=== PATIENT | female | born 1935 | race Caucasian/White ===

== ENCOUNTER 2017-08-29 17:15 | Inpatient (IN) | payer MEDICARE, OTHER ==
[~2017-08-29] VITALS: Ht 162.6 cm; Wt 59.0 kg
[2017-08-29 17:26] VITALS: BP 110/63
[2017-08-29] MEDS ORDERED: TRAZODONE HCL100 MG ORAL (17:58)
[2017-08-29] MEDS ORDERED: CYMBALTA60 MG ORAL (17:58)
[2017-08-29] MEDS ORDERED: GABAPENTIN400 MG ORAL (17:58)
[2017-08-29] MEDS ORDERED: DONEPEZIL HCL10 MG ORAL (17:58)
[2017-08-29] MEDS ORDERED: LOSARTAN POTASS50 MG ORAL (17:59)
[2017-08-29] MEDS ORDERED: QUETIAPINE FUMA25 MG ORAL (17:59)
[2017-08-29] MEDS ORDERED: METOPROLOL TART25 MG ORAL (18:05)
--- NOTE | 2017-08-29 18:18 | Emergency Room Report ---
History of Present Illness General Chief Complaint: Dyspnea/Respdistress Source: Patient, Medical Record, EMS Present Illness HPI [id number] Brought in for altered mental status by EMS. Patient not providing any history of present illness currently Info from SNF is limited No family members or friends bedside. Allergies: Coded Allergies: No Known Allergies (Unverified , 08/29/17) Patient History Past Medical History: unable to obtain Past Surgical History: unable to obtain Pertinent Family History: unable to obtain Social History: Denies: smoking, alcohol use, drug use Now: No Immunizations: UTD Reviewed Nursing Documentation: PMH: Agreed, PSxH: Agreed Nursing Documentation-PMH Past Medical History: No History, Except For Review of Systems All Other Systems: limited - AMS Physical Exam Vital Signs Date Time Temp Pulse Resp B/P (MAP) Pulse Ox O2 Delivery O2 Flow Rate FiO2 08/29/17 17:16 96.0 87 18 128/62 100 Non-Rebreather 15.0 96.1 Sp02 EP Interpretation: reviewed, normal General Appearance: normal inspection, well appearing, no apparent distress, alert, non-toxic, obese, Chronically Ill Head: normocephalic, atraumatic Eyes: bilateral eye PERRL, bilateral eye EOMI ENT: normal ENT inspection, normal pharynx, no angioedema, TMs + canals normal , uvula midline, moist mucus membranes Neck: normal inspection, full range of motion, supple, thyroid normal, no meningismus, no bony tend Respiratory: normal inspection, lungs clear, normal breath sounds, no rhonchi, no respiratory distress, no retraction, no accessory muscle use, no wheezing, speaking full sentences Cardiovascular #1: regular rate, rhythm, no edema, no JVD, normal capillary refill Gastrointestinal: normal inspection, normal bowel sounds, non tender, soft, no mass, no peritonitis, non-distended, no guarding, no hernia, no pulsatile mass Genitourinary: no CVA tenderness Musculoskeletal: normal inspection, back normal, normal range of motion, no calf tenderness, pelvis stable, Zechariah's Sign negative Neurologic: normal inspection, alert, responsive, field artillery targeting technician III-XII nml as tested, motor strength/tone normal, cerebellar normal, normal gait, speech normal Psychiatric: normal inspection, judgement/insight normal, mood/affect normal, no suicidal/homicidal ideation, no delusions Skin: normal inspection, normal color, no rash Lymphatic: normal inspection, no adenopathy Medical Decision Making Diagnostic Impression: Primary Impression: Altered mental status Qualified Codes: R41.82 - Altered mental status, unspecified Additional Impressions: UCHE (acute kidney injury) UTI (urinary tract infection) Qualified Codes: N30.01 - Acute cystitis with hematuria ER Course Vital signs stable, afebrile altered mental status source likely UTI Pharmacy told me they did not have Levaquin 750 mg and to order something different. I ordered Rocephin instead however pharmacy also still gave the Levaquin in a 250 mg and 500 mg dose Labs significant for mild leukocytosis, elevated serum creatinine unknown baseline serum creatinine. She remained stable in ER Endorsed to Dr. Molina for panel admission to telemetry bed at 7:44 PM EKG Diagnostic Results Rate: normal Rhythm: NSR ST Segments: no acute changes ASA given to the pt in ED: No Rhythm Strip Diag. Results EP Interpretation: yes Rate: 92 Rhythm: NSR, no PVC's, no ectopy Chest X-Ray Diagnostic Results Chest X-Ray Diagnostic Results : Chest X-Ray Ordered: Yes # of Views/Limited/Complete: 1 View Indication: Other - Sepsis EP Interpretation: Yes Interpretation: no consolidation, no effusion, no pneumothorax, no acute cardiopulmonary disease Impression: No acute disease Electronically Signed by: Dr Kathy Jones MD Last Vital Signs Date Time Temp Pulse Resp B/P (MAP) Pulse Ox O2 Delivery O2 Flow Rate FiO2 08/29/17 17:16 96.0 87 18 128/62 100 Non-Rebreather 15.0 96.1 Status: improved Disposition: ADMITTED INPATIENT Condition: Serious KATHY JONES M.D. Aug 29, 2017 18:18
[2017-08-29 18:37] LABS: BASOPHILS % (AUTO) 0.6 % (0.0-2.0); EOSINOPHILS % (AUTO) 0.3 % (0.0-3.0); HEMATOCRIT 41.1 % (37.0-47.0); HEMOGLOBIN 13.9 G/DL (12.0-16.0); LYMPHOCYTES % (AUTO) 11.5 % (20.0-45.0); MEAN CORPUSCULAR VOLUME 93 FL (80-99); MONOCYTES % (AUTO) 7.1 % (1.0-10.0); NEUTROPHILS % (AUTO) 80.4 % (45.0-75.0); PLATELET COUNT 256 K/UL (150-450); RED BLOOD COUNT 4.41 M/UL (4.20-5.40); RED CELL DISTRIBUTION WIDTH 13.5 % (11.6-14.8); WHITE BLOOD COUNT 11.2 K/UL (4.8-10.8)
[2017-08-29 18:45] VITALS: BP 111/72
[2017-08-29 18:45] LABS: APPEARANCE,URINE SLIGHTLY CLOUDY; BILIRUBIN, URINE NEGATIVE (NEGATIVE); GLUCOSE, URINE (UA) NEGATIVE (NEGATIVE); KETONES,URINE 1+ (NEGATIVE); LEUKOCYTE ESTERASE ,URINE 1+ (NEGATIVE); NITRITE,URINE NEGATIVE (NEGATIVE); PH,URINE 5 (4.5-8.0); PROTEIN,URINE 2+ (NEGATIVE); UROBILINOGEN,URINE 1 MG/DL (0.0-1.0)
[2017-08-29] MEDS ORDERED: cefTRIAXone 2 GM in NS 55 ML IVPB ONE (18:45)
[2017-08-29 18:47] LABS: COLOR,URINE YELLOW
[2017-08-29] MEDS: Levofloxacin 250mg/D5W 50ml IVPB ONE ×2 (19:02→19:42)
[2017-08-29 19:03] LABS: ANION GAP 7 mmol/L (5-15); BLOOD UREA NITROGEN 27 mg/dL (7-18); CALCIUM 9.4 MG/DL (8.5-10.1); CARBON DIOXIDE 27 MMOL/L (21-32); CHLORIDE 106 MMOL/L (98-107); CREATININE 1.4 MG/DL (0.55-1.30); POTASSIUM 4.2 MMOL/L (3.5-5.1); SODIUM 140 MMOL/L (136-145)
[2017-08-29 19:18] LABS: ALANINE AMINOTRANSFERASE 35 U/L (12-78); ALBUMIN 3.6 G/DL (3.4-5.0); ALKALINE PHOSPHATASE 68 U/L (46-116); ASPARTATE AMINO TRANSFERASE 29 U/L (15-37); BILIRUBIN,TOTAL 0.4 MG/DL (0.2-1.0); CKMB 1.2 NG/ML (0.0-3.6); CREATINE KINASE 110 U/L (26-308)
[2017-08-29 19:40] VITALS: BP 112/74
[2017-08-29] MEDS ORDERED: Morphine Sulfate 2mg/ml Inj IVP PRN (21:30)
[2017-08-29] MEDS ORDERED: Albuterol/Ipratropium 3ml neb HHN PRN (21:30)
[2017-08-29] MEDS ORDERED: Miralax 17gm pkt ORAL PRN (21:30)
[2017-08-29 21:50] VITALS: BP 124/72
[2017-08-30] VITALS (7 sets, daily range): BP systolic 105–155; BP diastolic 65–89
[2017-08-30] MEDS ORDERED: Vancomycin 1 GM in D5W 275 ML IVPB SCH (00:30)
[2017-08-30] MEDS ORDERED: Vancomycin 1gm inj IVPB ONE (00:32)
--- NOTE | 2017-08-30 08:51 | Diagnostic Imaging Report ---
Indication: Shortness of breath Technique: One view of the chest Comparison: none Findings: Patient is status post multiple vertebral augmentation procedures. There is slight blunting of both costophrenic sulci, small effusions are not excluded. The lungs are clear. 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 Impression: Equivocal small bilateral pleural effusions. No acute process otherwise
[2017-08-30] MEDS ORDERED: DULoxetine 30mg cap ORAL SCH (09:00)
[2017-08-30] MEDS ORDERED: Heparin 5000 units/ml inj SUBQ SCH (09:00)
[2017-08-30] MEDS ORDERED: TraZODone 100mg tab ORAL SCH (09:00)
[2017-08-30] MEDS ORDERED: Metoprolol 25mg tab ORAL SCH (09:00)
[2017-08-30] MEDS ORDERED: Cefepime HCl 2 GM in D5W 110 ML IV SCH (09:00)
[2017-08-30] MEDS ORDERED: Donepezil 10mg tab ORAL SCH (09:00)
--- NOTE | 2017-08-30 12:25 | Consultation ---
History of Present Illness General Date patient seen: Aug 30, 2017 Chief Complaint: Dyspnea/Respdistress Present Illness HPI 81 year old female from a [facility] facility with psychiatric disorder was brought in by paramedics with CC of ALOC. Pt couldn't provide any history. She was thought to have UTI causing sepsis and ALOC and admitted for further management. Only information available from the [facility], is her medication list, filled with psychiatric meds. Allergies: Coded Allergies: No Known Allergies (Unverified , 08/29/17) Medication History Scheduled Donepezil Hcl* (Donepezil Hcl*), 10 MG ORAL DAILY, (Reported) Duloxetine Hcl* (Cymbalta*), 60 MG ORAL DAILY, (Reported) Gabapentin* (Gabapentin*), 400 MG ORAL TWICE A DAY, (Reported) Losartan Potassium* (Losartan Potassium*), 50 MG ORAL DAILY, (Reported) Metoprolol Tartrate* (Metoprolol Tartrate*), 25 MG ORAL DAILY, (Reported) Quetiapine Fumarate* (Seroquel*), 50 MG ORAL DAILY, (Reported) Trazodone Hcl* (Desyrel*), 100 MG ORAL DAILY, (Reported) Patient History Healthcare decision maker Resuscitation status Full Code Advanced Directive on File Past Medical/Surgical History Past Medical/Surgical History: (1) Psychiatric diagnosis Review of Systems All Other Systems: negative except mentioned in HPI Physical Exam General Appearance: cachetic Lines, tubes and drains: peripheral HEENT: normocephalic, atraumatic Neck: non-tender, normal alignment Respiratory/Chest: chest wall non-tender, lungs clear, no respiratory distress Breasts: no masses Cardiovascular/Chest: normal peripheral pulses Abdomen: normal bowel sounds, non tender Last 24 Hour Vital Signs Date Time Temp Pulse Resp B/P (MAP) Pulse Ox O2 Delivery O2 Flow Rate FiO2 08/30/17 09:58 102 149/72 08/30/17 08:00 98.2 102 18 149/72 98 Non-Rebreather 15.0 98.2 08/30/17 06:42 75 20 Non-Rebreather 100 08/30/17 04:00 97.7 97 20 137/84 97 Non-Rebreather 15.0 97.7 08/30/17 03:49 107 08/30/17 00:00 97.7 99 20 150/77 97 Non-Rebreather 15.0 97.7 08/29/17 23:51 100 08/29/17 22:10 98.6 97 15 124/72 100 Non-Rebreather 15.0 98.6 08/29/17 21:50 98.6 97 15 124/72 100 Non-Rebreather 15.0 98.6 08/29/17 19:40 98.2 97 16 112/74 100 Non-Rebreather 15.0 98.2 08/29/17 18:45 98.4 100 14 111/72 100 Non-Rebreather 15.0 98.4 08/29/17 17:26 87 18 Non-Rebreather 15.0 08/29/17 17:26 98.4 95 15 110/63 100 Non-Rebreather 15.0 98.4 08/29/17 17:16 96.0 87 18 128/62 100 Non-Rebreather 15.0 96.1 Intake and Output 08/29/17 08/30/17 19:00 07:00 Intake Total 0 ml 366.6 ml Balance 0 ml 366.6 ml Intake Oral 0 ml IV Total 366.6 ml # Voids 2 Laboratory Tests Test 08/29/17 17:35 08/29/17 18:30 White Blood Count 11.2 K/UL (4.8-10.8) H Red Blood Count 4.41 M/UL (4.20-5.40) Hemoglobin 13.9 G/DL (12.0-16.0) Hematocrit 41.1 % (37.0-47.0) Mean Corpuscular Volume 93 FL (80-99) Mean Corpuscular Hemoglobin 31.5 PG (27.0-31.0) H Mean Corpuscular Hemoglobin Concent 33.8 G/DL (32.0-36.0) Red Cell Distribution Width 13.5 % (11.6-14.8) Platelet Count 256 K/UL (150-450) Mean Platelet Volume 6.2 FL (6.5-10.1) L Neutrophils (%) (Auto) 80.4 % (45.0-75.0) H Lymphocytes (%) (Auto) 11.5 % (20.0-45.0) L Monocytes (%) (Auto) 7.1 % (1.0-10.0) Eosinophils (%) (Auto) 0.3 % (0.0-3.0) Basophils (%) (Auto) 0.6 % (0.0-2.0) Sodium Level 140 MMOL/L (136-145) Potassium Level 4.2 MMOL/L (3.5-5.1) Chloride Level 106 MMOL/L (98-107) Carbon Dioxide Level 27 MMOL/L (21-32) Anion Gap 7 mmol/L (5-15) Blood Urea Nitrogen 27 mg/dL (7-18) H Creatinine 1.4 MG/DL (0.55-1.30) H Estimat Glomerular Filtration Rate mL/min (>60) Glucose Level 184 MG/DL (74-106) H Lactic Acid Level 1.10 mmol/L (0.66-2.22) Calcium Level 9.4 MG/DL (8.5-10.1) Total Bilirubin 0.4 MG/DL (0.2-1.0) Aspartate Amino Transf (AST/SGOT) 29 U/L (15-37) Alanine Aminotransferase (ALT/SGPT) 35 U/L (12-78) Alkaline Phosphatase 68 U/L (46-116) Total Creatine Kinase 110 U/L (26-308) Creatine Kinase MB 1.2 NG/ML (0.0-3.6) Creatine Kinase MB Relative Index 1.0 Troponin I 0.007 ng/mL (0.000-0.056) Total Protein 7.2 G/DL (6.4-8.2) Albumin 3.6 G/DL (3.4-5.0) Globulin 3.6 g/dL Albumin/Globulin Ratio 1.0 (1.0-2.7) Urine Color Yellow Urine Appearance Slightly cloudy Urine pH 5 (4.5-8.0) Urine Specific [place] 1.020 (1.005-1.035) Urine Protein 2+ (NEGATIVE) H Urine Glucose (UA) Negative (NEGATIVE) Urine Ketones 1+ (NEGATIVE) H Urine Occult Blood 1+ (NEGATIVE) H Urine Nitrite Negative (NEGATIVE) Urine Bilirubin Negative (NEGATIVE) Urine Urobilinogen 1 MG/DL (0.0-1.0) H Urine Leukocyte Esterase 1+ (NEGATIVE) H Urine RBC 0-2 /HPF (0 - 2) Urine WBC 5-10 /HPF (0 - 2) H Urine Squamous Epithelial Cells Few /LPF (NONE/OCC) Urine Amorphous Sediment Moderate /LPF (NONE) H Urine Bacteria Few /HPF (NONE) Urine Mucus Few /LPF (NONE/OCC) H Height (Feet): 5 Height (Inches): 4.00 Weight (Pounds): 130 Medications Current Medications Medications (Trade) Dose Ordered Sig/Nimesh Route PRN Reason Start Time Stop Time Status Last Admin Dose Admin Acetaminophen (Tylenol) 650 mg Q4H PRN ORAL fever 08/29/17 21:30 09/28/17 21:29 Albuterol/ Ipratropium (Albuterol/ Ipratropium) 3 ml EVERY 4 HOURS PRN HHN Shortness of Breath 08/29/17 21:30 09/03/17 21:29 Cefepime HCl 2 gm/ Dextrose 110 ml @ 220 mls/hr Q24H IV 08/30/17 09:00 09/06/17 08:59 08/30/17 10:59 Donepezil HCl (Aricept) 10 mg DAILY ORAL 08/30/17 09:00 09/29/17 08:59 08/30/17 09:59 Duloxetine HCl (Cymbalta) 60 mg DAILY ORAL 08/30/17 09:00 09/29/17 08:59 08/30/17 09:59 Gabapentin (Neurontin) 400 mg TWICE A DAY ORAL 08/30/17 09:00 09/29/17 08:59 08/30/17 09:59 Heparin Sodium (Porcine) (Heparin 5000 units/ml) 5,000 units EVERY 12 HOURS SUBQ 08/30/17 09:00 09/29/17 08:59 08/30/17 10:07 Metoprolol Tartrate (Lopressor) 25 mg DAILY ORAL 08/30/17 09:00 09/29/17 08:59 08/30/17 09:58 Morphine Sulfate (Morphine Sulfate) 2 mg EVERY 4 HOURS PRN IVP Moderate Pain (Pain Scale 4-6) 08/29/17 21:30 09/05/17 21:29 08/30/17 01:14 Ondansetron HCl (Zofran) 4 mg Q6H PRN IVP Nausea & Vomiting 08/29/17 21:30 09/28/17 21:29 Phenazopyridine HCl (Pyridium) 100 mg DAILY PRN ORAL dysuria 08/29/17 21:30 09/28/17 21:29 Polyethylene Glycol (Miralax) 17 gm DAILYPRN PRN ORAL Constipation 08/29/17 21:30 09/28/17 21:29 Quetiapine Fumarate (SEROquel) 50 mg DAILY ORAL 08/30/17 09:00 09/29/17 08:59 08/30/17 09:59 Temazepam (Restoril) 15 mg HSPRN PRN ORAL Insomnia 08/29/17 21:30 09/05/17 21:29 Trazodone HCl (Desyrel) 100 mg DAILY ORAL 08/30/17 09:00 09/29/17 08:59 08/30/17 10:05 Vancomycin HCl 1 gm/Dextrose 275 ml @ 183.3 mls/ hr Q24H IVPB 08/30/17 00:30 09/04/17 00:29 08/30/17 00:50 Assessment/Plan Problem List: (1) Altered mental status ICD Codes: R41.82 - Altered mental status, unspecified SNOMED: 293911645 Qualifiers: Qualified Codes: R41.82 - Altered mental status, unspecified (2) UTI (urinary tract infection) ICD Codes: N39.0 - Urinary tract infection, site not specified SNOMED: 98159497 Qualifiers: Qualified Codes: N30.01 - Acute cystitis with hematuria (3) UCHE (acute kidney injury) ICD Codes: N17.9 - Acute kidney failure, unspecified SNOMED: 99604059 (4) Psychiatric diagnosis ICD Codes: F99 - Mental disorder, not otherwise specified SNOMED: 26275652, 336050637 Assessment/Plan iv fluids check cultures check urine cxr was negative psychiatry to see renal w/u check electrolytes. CHRISTINE PANG Aug 30, 2017 12:25
[2017-08-30] MEDS ORDERED: Albuterol/Ipratropium 3ml neb HHN PRN (17:00)
--- NOTE | 2017-08-30 20:13 | Consultation ---
History of Present Illness General Date patient seen: Aug 30, 2017 Chief Complaint: Dyspnea/Respdistress Present Illness HPI the pt with hx of depression and dementia who pw ams, the pt was confused and pw waxing and waning of consciousness. the pt has memory impairment and not able to be engaged. the pt has been more confused and agitated at her living facility. Allergies: Coded Allergies: No Known Allergies (Unverified , 08/29/17) Medication History Scheduled Donepezil Hcl* (Donepezil Hcl*), 10 MG ORAL DAILY, (Reported) Duloxetine Hcl* (Cymbalta*), 60 MG ORAL DAILY, (Reported) Gabapentin* (Gabapentin*), 400 MG ORAL TWICE A DAY, (Reported) Losartan Potassium* (Losartan Potassium*), 50 MG ORAL DAILY, (Reported) Metoprolol Tartrate* (Metoprolol Tartrate*), 25 MG ORAL DAILY, (Reported) Quetiapine Fumarate* (Seroquel*), 50 MG ORAL DAILY, (Reported) Trazodone Hcl* (Desyrel*), 100 MG ORAL DAILY, (Reported) Patient History Limited by: medical condition History Provided By: Patient, Medical Record, PMD Healthcare decision maker Resuscitation status Full Code Advanced Directive on File Past Medical/Surgical History Past Medical/Surgical History: (1) Altered mental status (2) UCHE (acute kidney injury) (3) Psychiatric diagnosis (4) UTI (urinary tract infection) Review of Systems Psychiatric: Reports: prior hx, anxiety, depressed feelings, emotional problems Physical Exam General Appearance: no apparent distress, alert, confused Last 24 Hour Vital Signs Date Time Temp Pulse Resp B/P (MAP) Pulse Ox O2 Delivery O2 Flow Rate FiO2 08/30/17 15:57 98.4 82 18 114/72 96 Room Air 98.4 08/30/17 15:00 97.9 76 19 105/65 98 97.9 08/30/17 12:00 97.7 90 18 132/89 98 Non-Rebreather 15.0 97.7 08/30/17 12:00 90 08/30/17 09:58 102 149/72 08/30/17 08:00 102 08/30/17 08:00 98.2 102 18 149/72 98 Non-Rebreather 15.0 98.2 08/30/17 06:42 75 20 Non-Rebreather 100 3/9/18 04:00 97.7 97 20 137/84 97 Non-Rebreather 15.0 97.7 08/30/17 03:49 107 08/30/17 00:00 97.7 99 20 150/77 97 Non-Rebreather 15.0 97.7 08/29/17 23:51 100 08/29/17 22:10 98.6 97 15 124/72 100 Non-Rebreather 15.0 98.6 08/29/17 21:50 98.6 97 15 124/72 100 Non-Rebreather 15.0 98.6 Intake and Output 08/29/17 08/30/17 19:00 07:00 Intake Total 0 ml 366.6 ml Balance 0 ml 366.6 ml Intake Oral 0 ml IV Total 366.6 ml # Voids 2 Height (Feet): 5 Height (Inches): 4.00 Weight (Pounds): 130 Medications Current Medications Medications (Trade) Dose Ordered Sig/Nimesh Route PRN Reason Start Time Stop Time Status Last Admin Dose Admin Acetaminophen (Tylenol) 650 mg Q4H PRN ORAL fever 08/30/17 17:30 09/28/17 21:29 Albuterol/ Ipratropium (Albuterol/ Ipratropium) 3 ml EVERY 4 HOURS PRN HHN Shortness of Breath 08/30/17 17:00 09/03/17 21:29 Cefepime HCl 2 gm/ Dextrose 110 ml @ 220 mls/hr Q24H IV 08/31/17 09:00 09/06/17 08:59 Donepezil HCl (Aricept) 10 mg DAILY ORAL 08/31/17 09:00 09/29/17 08:59 Duloxetine HCl (Cymbalta) 60 mg DAILY ORAL 08/31/17 09:00 09/29/17 08:59 Gabapentin (Neurontin) 400 mg TWICE A DAY ORAL 08/30/17 18:00 09/29/17 08:59 08/30/17 18:17 Heparin Sodium (Porcine) (Heparin 5000 units/ml) 5,000 units EVERY 12 HOURS SUBQ 08/30/17 21:00 09/29/17 08:59 Metoprolol Tartrate (Lopressor) 25 mg DAILY ORAL 08/31/17 09:00 09/29/17 08:59 Morphine Sulfate (Morphine Sulfate) 2 mg EVERY 4 HOURS PRN IVP Moderate Pain (Pain Scale 4-6) 08/30/17 17:00 09/05/17 21:29 Ondansetron HCl (Zofran) 4 mg Q6H PRN IVP Nausea & Vomiting 08/30/17 15:30 09/28/17 21:29 Phenazopyridine HCl (Pyridium) 100 mg DAILY PRN ORAL dysuria 08/31/17 09:00 09/28/17 21:29 Polyethylene Glycol (Miralax) 17 gm DAILYPRN PRN ORAL Constipation 08/30/17 21:30 09/28/17 21:29 Quetiapine Fumarate (SEROquel) 50 mg DAILY ORAL 08/31/17 09:00 09/29/17 08:59 Temazepam (Restoril) 15 mg HSPRN PRN ORAL Insomnia 08/30/17 21:30 09/05/17 21:29 Trazodone HCl (Desyrel) 100 mg DAILY ORAL 08/31/17 09:00 09/29/17 08:59 Vancomycin HCl (Vanco rx to dose) 1 ea DAILYPRN PRN MISC RX TO DOSE PROTOCOL 08/31/17 14:45 09/29/17 14:44 Vancomycin HCl 1 gm/Dextrose 275 ml @ 183.3 mls/ hr Q24H IVPB 08/31/17 00:30 09/04/17 00:29 Assessment/Plan Status: unchanged Assessment/Plan encephalopathy dementia with behavioral disturbance cont Silveriombalta abdulaziz donazapil stop trazadone change seroquel to night Liat Dan M.D. Aug 30, 2017 20:13
--- NOTE | 2017-08-30 20:16 | History & Physical ---
History and Physical History & Physicial Dictated for Int Med-Dr Molina no. [id number]. DAMARIS REINA Aug 30, 2017 20:16
[2017-08-30] MEDS: Heparin 5000 units/ml inj SUBQ SCH (20:27)
[2017-08-30] MEDS ORDERED: Miralax 17gm pkt ORAL PRN (21:30)
--- NOTE | 2017-08-30 21:53 | Consultation ---
Consult Note Consult Note [id number] DILAN FOURNIER M.D. Aug 30, 2017 21:53
[2017-08-30] MEDS: Morphine Sulfate 2mg/ml Inj IVP PRN (22:18)
[2017-08-31] VITALS: BP 118/63
[2017-08-31] MEDS ORDERED: Vancomycin 1 GM in D5W 275 ML IVPB SCH (00:30)
[2017-08-31 04:00] VITALS: BP 118/65
--- NOTE | 2017-08-31 04:00 | History and Physical Report ---
DATE OF ADMISSION: 08/29/2017 CHIEF COMPLAINT: The patient is a 81-year-old female, who presents with a chief complaint of altered mental status. HISTORY OF PRESENT ILLNESS: The patient is a resident of [facility]. The patient herself is unable to contribute much to the history and physical. Much of the history and physical is obtained from the patient's chart. According to the staff at [facility], the patient had altered mental status yesterday, 08/29/2017. The patient was transported to [place] emergency room. The patient is admitted for altered mental status to rule out acute cerebrovascular accident. PAST MEDICAL HISTORY: Significant for, 1. Hypertension. 2. Alzheimer's dementia. 3. Depression. PAST SURGICAL HISTORY: Unknown. CURRENT MEDICATIONS: 1. Trazodone 100 mg one tablet p.o. daily. 2. Lorazepam 0.5 mg p.o. q.6 hours anxiety. 3. Fluoxetine 60 mg p.o. daily. 4. Metoprolol 25 mg p.o. daily. 5. Gabapentin 400 mg p.o. twice daily. 6. Hydrochlorothiazide and benazepril 10 mg p.o. daily. 7. Losartan 50 mg p.o. daily. 8. Trazodone 100 mg p.o. daily. 9. Seroquel 30 mg p.o. twice daily. 10. Metoprolol 25 mg p.o. daily. 11. Gabapentin 400 mg p.o. twice daily. 12. Losartan 50 mg p.o. daily. ALLERGIES: No known drug allergies. SOCIAL HISTORY: The patient denies tobacco or alcohol use. The patient lives at [facility]. REVIEW OF SYSTEMS: Unable to assess secondary to the patient's mental status. PHYSICAL EXAMINATION: VITAL SIGNS: Temperature 98.2, respirations 18, pulse elevated at 102, and blood pressure 149/72. GENERAL: The patient is a well-developed and well-nourished thin-appearing female, in no apparent distress. HEENT: Eyes, pupils equal responsive to light and accommodation. Extraocular movements intact. NECK: Supple. No lymphadenopathy. CHEST: Lungs are clear to auscultation bilaterally without wheezes or rales. CARDIOVASCULAR: Regular rhythm and rate. S1 and S2 are normal without murmurs, rubs, or gallops. ABDOMEN: Soft, nontender, and nondistended. Positive bowel sounds. No evidence of hepatosplenomegaly. Currently, no rebound or guarding noted. EXTREMITIES: Negative for clubbing, cyanosis, edema. RECTAL/GENITAL: Refused. NEUROLOGIC: Cranial nerves II through XII are grossly intact without focal deficits. Motor strength is 5/5 bilaterally. Deep tendon reflexes are 2+ plantar. LABORATORY STUDIES: WBC 11.3, hemoglobin 13.9, hematocrit 41.1, and platelets 356,000. Sodium 140, potassium 4.2, chloride 106, CO2 27, BUN 1.4, and glucose 184. Chest x-ray was reported as no acute disease. Urinalysis showed 1+ ketones, 1+ occult blood, 1+ leukocyte esterase, and 5 to 10 wbc's. ASSESSMENT: This is a 81-year-old white female. 1. Altered mental status. 2. Hypertension. 3. Alzheimer's dementia. 4. Depression. TREATMENT: 1. Altered mental status. This may be secondary to urinary tract infection. The patient has been started empirically on vancomycin. Infectious disease consultation has been obtained with Dr. Linda. Cefepime has been added for protection. Broader spectrum. 2. Hypertension. 3. Urinary tract infection. A urine culture is pending. As above, the patient has been started on vancomycin and cefepime by infectious disease. 4. Hypertension. Continue metoprolol as above. 5. Alzheimer's dementia. Continue Aricept and Namenda as above. 6. Depression. Continue Cymbalta and trazodone as above. Dax Chacon M.D. DR: ADELITA JOB#: [id number] CC:
--- NOTE | 2017-08-31 07:45 | Consultation ---
DATE OF CONSULTATION: 08/30/2017 INFECTIOUS DISEASE CONSULTATION CONSULTING PHYSICIAN: Dorian Linda M.D. REFERRING PHYSICIANS: 1. Pratik Barkley M.D. 2. Sabas Molina M.D. REASON FOR CONSULTATION: Evaluation of the patient for sepsis and antibiotic management. HISTORY OF PRESENT ILLNESS: The patient is a 81-year-old female who was brought to this medical center due to altered level of consciousness. The patient is not able to provide information. The patient was admitted with the impression of probable UTI and sepsis. An Infectious Disease consultation has been requested for further evaluation of the patient and antibiotic management. PAST MEDICAL HISTORY: Osteoporosis, hypertension, and psychiatric disorder. MEDICATIONS: Vancomycin and cefepime. ALLERGIES: No known drug allergies. SOCIAL HISTORY: Unknown. FAMILY HISTORY: Unavailable. REVIEW OF SYSTEMS: Unobtainable. The patient is not cooperative. PHYSICAL EXAMINATION: VITAL SIGNS: Temperature 98.7, pulse 80, respiratory rate 18, and blood pressure 120/65. HEENT: No pale conjunctivae. No icterus. NECK: No lymphadenopathy. CHEST: Clear. HEART: S1 and S2. ABDOMEN: Soft. EXTREMITIES: No cyanosis at this time. NEUROLOGIC: Awake, agitated. SKIN: No rash. LABORATORY AND DIAGNOSTIC DATA: White blood cells 11.2, hemoglobin 13, and platelets 256,000. UA, 5 to 10 white blood cells. BUN 20 and creatinine 1.4. ALT, AST, and alkaline phosphatase are unremarkable. Chest x-ray, small pleural effusion. NAPD. ASSESSMENT: The patient is a 81-year-old female with 1. Altered level of consciousness and agitation. This could be due to sepsis versus possible exacerbation of the patient's psychiatric issues. 2. ____. 3. white blood cells. 4. Mild pyuria, rule out urinary tract infection. PLAN: 1. We will continue the patient on IV cefepime. 2. Hold IV vancomycin. 3. Monitor CBC. 4. Monitor BMP. 5. Monitor cultures (blood and urine). 6. Monitor chest x-ray. 7. Based on the patient's clinical course and labs, we will do further recommendations. Thank you, Dr. Barkley, for allowing me to participate in the care of this patient. I will follow the patient with you during this hospitalization. Dorian Linda M.D. DR: EMORY JOB#: [id number] CC:
[2017-08-31 08:10] VITALS: BP 134/78
[2017-08-31] MEDS ORDERED: Donepezil 10mg tab ORAL SCH (09:00)
[2017-08-31] MEDS ORDERED: TraZODone 100mg tab ORAL SCH (09:00)
[2017-08-31] MEDS: DULoxetine 30mg cap ORAL SCH (10:57)
[2017-08-31] MEDS: Metoprolol 25mg tab ORAL SCH (10:57)
[2017-08-31] MEDS: Heparin 5000 units/ml inj SUBQ SCH ×2 (10:59→20:58)
[2017-08-31] MEDS: Cefepime HCl 2 GM in D5W 110 ML IV SCH (11:09)
[2017-08-31 12:05] VITALS: BP 135/90
[2017-08-31 16:00] VITALS: BP 128/86
--- NOTE | 2017-08-31 17:14 | Internal Med Progress Note ---
Subjective Date of Service: Aug 31, 2017 Physician Name Reina,Damaris Attending Physician Sabas Molina MD Current Medications Medications (Trade) Dose Ordered Sig/Nimesh Route PRN Reason Start Time Stop Time Status Last Admin Dose Admin Acetaminophen (Tylenol) 650 mg Q4H PRN ORAL fever 08/30/17 17:30 09/28/17 21:29 Albuterol/ Ipratropium (Albuterol/ Ipratropium) 3 ml EVERY 4 HOURS PRN HHN Shortness of Breath 08/30/17 17:00 09/03/17 21:29 Cefepime HCl 2 gm/ Dextrose 110 ml @ 220 mls/hr Q24H IV 08/31/17 09:00 09/06/17 08:59 08/31/17 11:09 Duloxetine HCl (Cymbalta) 60 mg DAILY ORAL 08/31/17 09:00 09/29/17 08:59 08/31/17 10:57 Gabapentin (Neurontin) 300 mg TWICE A DAY ORAL 08/31/17 11:15 09/30/17 11:14 08/31/17 11:09 Heparin Sodium (Porcine) (Heparin 5000 units/ml) 5,000 units EVERY 12 HOURS SUBQ 08/30/17 21:00 09/29/17 08:59 08/31/17 10:59 Metoprolol Tartrate (Lopressor) 25 mg DAILY ORAL 08/31/17 09:00 09/29/17 08:59 08/31/17 10:57 Morphine Sulfate (Morphine Sulfate) 2 mg EVERY 4 HOURS PRN IVP Moderate Pain (Pain Scale 4-6) 08/30/17 17:00 09/05/17 21:29 08/30/17 22:18 Ondansetron HCl (Zofran) 4 mg Q6H PRN IVP Nausea & Vomiting 08/30/17 15:30 09/28/17 21:29 Phenazopyridine HCl (Pyridium) 100 mg DAILY PRN ORAL dysuria 08/31/17 09:00 09/28/17 21:29 Polyethylene Glycol (Miralax) 17 gm DAILYPRN PRN ORAL Constipation 08/30/17 21:30 09/28/17 21:29 Quetiapine Fumarate (SEROquel) 50 mg BEDTIME ORAL 08/31/17 21:00 09/29/17 08:59 Temazepam (Restoril) 15 mg HSPRN PRN ORAL Insomnia 08/30/17 21:30 09/05/17 21:29 Allergies: Coded Allergies: No Known Allergies (Unverified , 08/29/17) ROS Limited/Unobtainable: Yes Subjective 81 YO F admitted with altered mental status. Now UTI. Cover for Int Med Dr Molina. Objective Last Vital Signs Date Time Temp Pulse Resp B/P (MAP) Pulse Ox O2 Delivery O2 Flow Rate FiO2 08/31/17 12:05 98.0 89 16 135/90 98 Room Air 98.0 08/31/17 07:30 21 08/30/17 20:00 General Appearance: mild distress, thin EENT: PERRL/EOMI, normal ENT inspection Neck: non-tender, normal alignment, supple Cardiovascular: normal peripheral pulses, normal rate, regular rhythm, no gallop/murmur, no JVD Respiratory/Chest: chest wall non-tender, lungs clear, normal breath sounds, no respiratory distress, no accessory muscle use Abdomen: normal bowel sounds, non tender, soft, no organomegaly, no mass Extremities: normal range of motion, non-tender Neurologic: head and neck surgeon II-XII grossly normal, no motor/sensory deficits Skin: normal pigmentation, warm/dry Microbiology Date/Time Source Procedure Growth Status 08/29/17 17:32 Blood Blood Culture - Preliminary NO GROWTH AFTER 24 HOURS Resulted 08/29/17 17:20 Blood Blood Culture - Preliminary NO GROWTH AFTER 24 HOURS Resulted Intake and Output 08/30/17 08/31/17 19:00 07:00 Intake Total 980 ml 240 ml Output Total 420 ml Balance 980 ml -180 ml Intake Oral 980 ml 240 ml Output Urine Total 420 ml # Voids 2 2 Assessment/Plan Problem List: (1) Depression Assessment & Plan: See psych note. (2) HTN (hypertension) Assessment & Plan: Contunue lopressor (3) Alzheimer's dementia (4) UTI (urinary tract infection) Assessment & Plan: Continue vanco and cefepime per ID (5) Altered mental status Status: not improved DAMARIS REINA Aug 31, 2017 17:13
--- NOTE | 2017-08-31 19:57 | Infectious Diseases Prog Note ---
Assessment/Plan Assessment/Plan ASSESSMENT: The patient is a 81-year-old female with Altered level of consciousness and agitation ? sepsis versus possible exacerbation of the patient's psychiatric issues afebrile mild leukocytosis Mild pyuria, rule out urinary tract infection. no evid of Pneum Chest x-ray : Small pleural effusion. NAPD Osteoporosis HTN psychiatric disorder PLAN: continue the patient on IV cefepime d# 2 for now Monitor CBC. Monitor BMP. Monitor cultures (blood and urine). Monitor chest x-ray. Subjective Allergies: Coded Allergies: No Known Allergies (Unverified , 08/29/17) Subjective afebrile Objective Vital Signs Last 24 Hour Vital Signs Date Time Temp Pulse Resp B/P (MAP) Pulse Ox O2 Delivery O2 Flow Rate FiO2 08/31/17 19:32 89 16 Room Air 21 08/31/17 12:05 98.0 89 16 135/90 98 Room Air 98.0 08/31/17 10:57 98 134/78 08/31/17 08:10 98.0 98 18 134/78 97 Room Air 98.0 08/31/17 07:30 79 20 Room Air 21 08/31/17 04:00 98.4 78 18 118/65 98 Room Air 98.4 08/31/17 00:00 98.7 80 18 118/63 98 Room Air 98.7 08/30/17 22:18 98.7 08/30/17 20:00 84 20 Room Air 21 08/30/17 20:00 98.7 83 19 120/65 98 Room Air 98.7 Height (Feet): 5 Height (Inches): 4.00 Weight (Pounds): 130 HEENT: anicteric Respiratory/Chest: no accessory muscle use Cardiovascular: regularly irregular Abdomen: non distended Microbiology Date/Time Source Procedure Growth Status 08/29/17 17:32 Blood Blood Culture - Preliminary NO GROWTH AFTER 24 HOURS Resulted 08/29/17 17:20 Blood Blood Culture - Preliminary NO GROWTH AFTER 24 HOURS Resulted Current Medications Medications (Trade) Dose Ordered Sig/Nimesh Route PRN Reason Start Time Stop Time Status Last Admin Dose Admin Acetaminophen (Tylenol) 650 mg Q4H PRN ORAL fever 08/30/17 17:30 09/28/17 21:29 Albuterol/ Ipratropium (Albuterol/ Ipratropium) 3 ml EVERY 4 HOURS PRN HHN Shortness of Breath 08/30/17 17:00 09/03/17 21:29 Cefepime HCl 2 gm/ Dextrose 110 ml @ 220 mls/hr Q24H IV 08/31/17 09:00 09/06/17 08:59 08/31/17 11:09 Duloxetine HCl (Cymbalta) 60 mg DAILY ORAL 08/31/17 09:00 09/29/17 08:59 08/31/17 10:57 Gabapentin (Neurontin) 300 mg TWICE A DAY ORAL 08/31/17 11:15 09/30/17 11:14 08/31/17 11:09 Heparin Sodium (Porcine) (Heparin 5000 units/ml) 5,000 units EVERY 12 HOURS SUBQ 08/30/17 21:00 09/29/17 08:59 08/31/17 10:59 Metoprolol Tartrate (Lopressor) 25 mg DAILY ORAL 08/31/17 09:00 09/29/17 08:59 08/31/17 10:57 Morphine Sulfate (Morphine Sulfate) 2 mg EVERY 4 HOURS PRN IVP Moderate Pain (Pain Scale 4-6) 08/30/17 17:00 09/05/17 21:29 08/30/17 22:18 Ondansetron HCl (Zofran) 4 mg Q6H PRN IVP Nausea & Vomiting 08/30/17 15:30 09/28/17 21:29 Phenazopyridine HCl (Pyridium) 100 mg DAILY PRN ORAL dysuria 08/31/17 09:00 09/28/17 21:29 Polyethylene Glycol (Miralax) 17 gm DAILYPRN PRN ORAL Constipation 08/30/17 21:30 09/28/17 21:29 Quetiapine Fumarate (SEROquel) 50 mg BEDTIME ORAL 08/31/17 21:00 09/29/17 08:59 Temazepam (Restoril) 15 mg HSPRN PRN ORAL Insomnia 08/30/17 21:30 09/05/17 21:29 DILAN FOURNIER M.D. Aug 31, 2017 19:57
[2017-08-31 20:05] VITALS: BP 118/72
[2017-09-01] VITALS (7 sets, daily range): BP systolic 103–159; BP diastolic 68–90
--- NOTE | 2017-09-01 00:10 | General Progress Note ---
Subjective Neurologic/Psychiatric: Reports: anxiety, depressed, emotional problems Allergies: Coded Allergies: No Known Allergies (Unverified , 08/29/17) Subjective the pt knew her name confused Objective Last 24 Hour Vital Signs Date Time Temp Pulse Resp B/P (MAP) Pulse Ox O2 Delivery O2 Flow Rate FiO2 08/31/17 20:05 98.0 98 18 118/72 98 Room Air 98.0 08/31/17 19:32 89 16 Room Air 21 08/31/17 16:00 98.0 86 18 128/86 98 Room Air 98.0 08/31/17 12:05 98.0 89 16 135/90 98 Room Air 98.0 08/31/17 10:57 98 134/78 08/31/17 08:10 98.0 98 18 134/78 97 Room Air 98.0 08/31/17 07:30 79 20 Room Air 21 08/31/17 04:00 98.4 78 18 118/65 98 Room Air 98.4 Intake and Output 08/31/17 09/01/17 19:00 07:00 Intake Total 350 ml 100 ml Output Total 650 ml Balance -300 ml 100 ml Intake Oral 350 ml 100 ml Output Urine Total 650 ml # Voids 2 1 Height (Feet): 5 Height (Inches): 4.00 Weight (Pounds): 130 General Appearance: no apparent distress, alert, confused, agitated Liat Dan M.D. Sep 01, 2017 00:10
[2017-09-01] MEDS: Morphine Sulfate 2mg/ml Inj IVP PRN ×2 (07:03→15:28)
[2017-09-01 08:28] LABS: BASOPHILS % (AUTO) 1.3 % (0.0-2.0); EOSINOPHILS % (AUTO) 1.4 % (0.0-3.0); HEMATOCRIT 41.7 % (37.0-47.0); HEMOGLOBIN 14.3 G/DL (12.0-16.0); LYMPHOCYTES % (AUTO) 20.9 % (20.0-45.0); MEAN CORPUSCULAR VOLUME 93 FL (80-99); MONOCYTES % (AUTO) 7.7 % (1.0-10.0); NEUTROPHILS % (AUTO) 68.8 % (45.0-75.0); PLATELET COUNT 242 K/UL (150-450); RED BLOOD COUNT 4.48 M/UL (4.20-5.40); RED CELL DISTRIBUTION WIDTH 13.2 % (11.6-14.8); WHITE BLOOD COUNT 6.3 K/UL (4.8-10.8)
[2017-09-01 08:56] LABS: ANION GAP 8 mmol/L (5-15); BLOOD UREA NITROGEN 26 mg/dL (7-18); CALCIUM 9.7 MG/DL (8.5-10.1); CARBON DIOXIDE 26 MMOL/L (21-32); CHLORIDE 104 MMOL/L (98-107); CREATININE 1.1 MG/DL (0.55-1.30); SODIUM 138 MMOL/L (136-145)
[2017-09-01] MEDS: DULoxetine 30mg cap ORAL SCH (09:07)
[2017-09-01] MEDS: Cefepime HCl 2 GM in D5W 110 ML IV SCH (09:07)
[2017-09-01] MEDS: Metoprolol 25mg tab ORAL SCH (09:08)
[2017-09-01] MEDS: Heparin 5000 units/ml inj SUBQ SCH ×2 (09:09→20:51)
[2017-09-01 14:39] LABS: APPEARANCE,URINE CLEAR; BILIRUBIN, URINE NEGATIVE (NEGATIVE); COLOR,URINE PALE YELLOW; GLUCOSE, URINE (UA) NEGATIVE (NEGATIVE); KETONES,URINE NEGATIVE (NEGATIVE); LEUKOCYTE ESTERASE ,URINE NEGATIVE (NEGATIVE); NITRITE,URINE NEGATIVE (NEGATIVE); PH,URINE 6 (4.5-8.0); PROTEIN,URINE NEGATIVE (NEGATIVE); UROBILINOGEN,URINE NORMAL MG/DL (0.0-1.0)
--- NOTE | 2017-09-01 16:32 | Internal Med Progress Note ---
Subjective Date of Service: Sep 01, 2017 Physician Name Dax Reina Attending Physician Sabas Molina MD Current Medications Medications (Trade) Dose Ordered Sig/Nimesh Route PRN Reason Start Time Stop Time Status Last Admin Dose Admin Acetaminophen (Tylenol) 650 mg Q4H PRN ORAL fever 08/30/17 17:30 09/28/17 21:29 Albuterol/ Ipratropium (Albuterol/ Ipratropium) 3 ml EVERY 4 HOURS PRN HHN Shortness of Breath 08/30/17 17:00 09/03/17 21:29 Cefepime HCl 2 gm/ Dextrose 110 ml @ 220 mls/hr Q24H IV 08/31/17 09:00 09/06/17 08:59 09/01/17 09:07 Duloxetine HCl (Cymbalta) 60 mg DAILY ORAL 08/31/17 09:00 09/29/17 08:59 09/01/17 09:07 Gabapentin (Neurontin) 300 mg TWICE A DAY ORAL 08/31/17 11:15 09/30/17 11:14 09/01/17 09:08 Heparin Sodium (Porcine) (Heparin 5000 units/ml) 5,000 units EVERY 12 HOURS SUBQ 08/30/17 21:00 09/29/17 08:59 09/01/17 09:09 Metoprolol Tartrate (Lopressor) 25 mg DAILY ORAL 08/31/17 09:00 09/29/17 08:59 09/01/17 09:08 Morphine Sulfate (Morphine Sulfate) 2 mg EVERY 4 HOURS PRN IVP Moderate Pain (Pain Scale 4-6) 08/30/17 17:00 09/05/17 21:29 09/01/17 15:28 Ondansetron HCl (Zofran) 4 mg Q6H PRN IVP Nausea & Vomiting 08/30/17 15:30 09/28/17 21:29 Phenazopyridine HCl (Pyridium) 100 mg DAILY PRN ORAL dysuria 08/31/17 09:00 09/28/17 21:29 Polyethylene Glycol (Miralax) 17 gm DAILYPRN PRN ORAL Constipation 08/30/17 21:30 09/28/17 21:29 Quetiapine Fumarate (SEROquel) 50 mg BEDTIME ORAL 08/31/17 21:00 4/8/18 08:59 08/31/17 20:57 Temazepam (Restoril) 15 mg HSPRN PRN ORAL Insomnia 08/30/17 21:30 09/05/17 21:29 Allergies: Coded Allergies: No Known Allergies (Unverified , 08/29/17) ROS Limited/Unobtainable: Yes Subjective 81 YO F admitted with altered mental status. Now UTI. Cover for Int Med Dr Molnia. Objective Last Vital Signs Date Time Temp Pulse Resp B/P (MAP) Pulse Ox O2 Delivery O2 Flow Rate FiO2 09/01/17 16:11 98.9 75 18 145/79 95 Room Air 98.9 09/01/17 07:36 21 08/30/17 20:00 Laboratory Tests Test 09/01/17 00:15 09/01/17 07:27 09/01/17 14:10 Vancomycin Level Trough 2.1 ug/mL (5.0-12.0) L White Blood Count 6.3 K/UL (4.8-10.8) Red Blood Count 4.48 M/UL (4.20-5.40) Hemoglobin 14.3 G/DL (12.0-16.0) Hematocrit 41.7 % (37.0-47.0) Mean Corpuscular Volume 93 FL (80-99) Mean Corpuscular Hemoglobin 31.9 PG (27.0-31.0) H Mean Corpuscular Hemoglobin Concent 34.3 G/DL (32.0-36.0) Red Cell Distribution Width 13.2 % (11.6-14.8) Platelet Count 242 K/UL (150-450) Mean Platelet Volume 6.2 FL (6.5-10.1) L Neutrophils (%) (Auto) 68.8 % (45.0-75.0) Lymphocytes (%) (Auto) 20.9 % (20.0-45.0) Monocytes (%) (Auto) 7.7 % (1.0-10.0) Eosinophils (%) (Auto) 1.4 % (0.0-3.0) Basophils (%) (Auto) 1.3 % (0.0-2.0) Sodium Level 138 MMOL/L (136-145) Potassium Level 4.0 MMOL/L (3.5-5.1) Chloride Level 104 MMOL/L (98-107) Carbon Dioxide Level 26 MMOL/L (21-32) Anion Gap 8 mmol/L (5-15) Blood Urea Nitrogen 26 mg/dL (7-18) H Creatinine 1.1 MG/DL (0.55-1.30) Estimat Glomerular Filtration Rate mL/min (>60) Glucose Level 102 MG/DL (74-106) Calcium Level 9.7 MG/DL (8.5-10.1) Urine Color Pale yellow Urine Appearance Clear Urine pH 6 (4.5-8.0) Urine Specific [place] 1.020 (1.005-1.035) Urine Protein Negative (NEGATIVE) Urine Glucose (UA) Negative (NEGATIVE) Urine Ketones Negative (NEGATIVE) Urine Occult Blood Negative (NEGATIVE) Urine Nitrite Negative (NEGATIVE) Urine Bilirubin Negative (NEGATIVE) Urine Urobilinogen Normal MG/DL (0.0-1.0) Urine Leukocyte Esterase Negative (NEGATIVE) Urine RBC 0-2 /HPF (0 - 2) Urine WBC 0-2 /HPF (0 - 2) Urine Squamous Epithelial Cells Occasional /LPF Urine Bacteria Occasional /HPF (NONE) Microbiology Date/Time Source Procedure Growth Status 08/29/17 17:32 Blood Blood Culture - Preliminary NO GROWTH AFTER 48 HOURS Resulted 08/29/17 17:20 Blood Blood Culture - Preliminary NO GROWTH AFTER 48 HOURS Resulted 08/29/17 18:06 Nasal Nares MRSA Culture - Final NO METHICILLIN RESISTANT STAPH AUREUS... Complete 08/29/17 18:06 Rectum VRE Culture - Final NO VANCOMYCIN RESISTANT ENTEROCOCCUS ... Complete Intake and Output 08/31/17 09/01/17 19:00 07:00 Intake Total 350 ml 220 ml Output Total 650 ml Balance -300 ml 220 ml Intake Oral 350 ml 220 ml Output Urine Total 650 ml # Voids 2 2 Objective General Appearance: mild distress, thin EENT: PERRL/EOMI, normal ENT inspection Neck: non-tender, normal alignment, supple Cardiovascular: normal peripheral pulses, normal rate, regular rhythm, no gallop/murmur, no JVD Respiratory/Chest: chest wall non-tender, lungs clear, normal breath sounds, no respiratory distress, no accessory muscle use Abdomen: normal bowel sounds, non tender, soft, no organomegaly, no mass Extremities: normal range of motion, non-tender Neurologic: implementation coordinator II-XII grossly normal, no motor/sensory deficits Skin: normal pigmentation, warm/dry Assessment/Plan Problem List: (1) Depression Assessment & Plan: See psych note. (2) HTN (hypertension) Assessment & Plan: Contunue lopressor (3) Alzheimer's dementia (4) UTI (urinary tract infection) Assessment & Plan: Continue cefepime per ID (5) Altered mental status Status: not improved DAX REINA Sep 01, 2017 16:32
--- NOTE | 2017-09-01 16:35 | Cardiology Report ---
APPROVED REPORT EKG Measurement Heart [id number] Normal sinus rhythm Normal ECG
[2017-09-02 04:00] VITALS: BP 134/75
[2017-09-02] MEDS: Morphine Sulfate 2mg/ml Inj IVP PRN (04:37)
[2017-09-02 08:00] VITALS: BP 144/89
[2017-09-02] MEDS: Cefepime HCl 2 GM in D5W 110 ML IV SCH (08:44)
[2017-09-02] MEDS: Metoprolol 25mg tab ORAL SCH (08:44)
[2017-09-02] MEDS: DULoxetine 30mg cap ORAL SCH (08:44)
[2017-09-02] MEDS: Heparin 5000 units/ml inj SUBQ SCH ×2 (08:45→21:27)
[2017-09-02 11:51] VITALS: BP 129/73
--- NOTE | 2017-09-02 12:47 | Infectious Diseases Prog Note ---
Assessment/Plan Assessment/Plan ASSESSMENT: The patient is a 81-year-old female with Altered level of consciousness and agitation - no obvious infectious process at present -Bcx NTD ? sepsis versus possible exacerbation of the patient's psychiatric issues afebrile mild leukocytosis - resolved Mild pyuria, repeat u/a normal no evid of Pneum Chest x-ray : Small pleural effusion. NAPD Osteoporosis HTN psychiatric disorder PLAN: D/c empiric IV cefepime d# 4 and monitor off abx Monitor CBC. Monitor BMP. Monitor cultures (blood and urine). Monitor chest x-ray. Subjective Allergies: Coded Allergies: No Known Allergies (Unverified , 08/29/17) Subjective afebrile leukocytosis resolved Bcx NTD Objective Vital Signs Last 24 Hour Vital Signs Date Time Temp Pulse Resp B/P (MAP) Pulse Ox O2 Delivery O2 Flow Rate FiO2 09/02/17 11:51 97.2 78 18 129/73 97 Room Air 97.2 09/02/17 08:44 89 144/89 09/02/17 08:00 97.6 89 18 144/89 97 Room Air 97.6 09/02/17 06:40 76 16 Room Air 21 09/02/17 04:00 97.7 87 18 134/75 97 Room Air 97.7 09/01/17 23:53 97.0 93 18 126/80 98 Room Air 97.0 09/01/17 20:10 97.9 75 18 103/70 95 Room Air 97.9 09/01/17 19:28 80 18 Room Air 21 09/01/17 16:11 98.9 75 18 145/79 95 Room Air 98.9 09/01/17 16:09 98.9 75 98.9 Height (Feet): 5 Height (Inches): 4.00 Weight (Pounds): 130 Objective General Appearance: mild distress, thin EENT: PERRL/EOMI, normal ENT inspection Neck: non-tender, normal alignment, supple Cardiovascular: normal peripheral pulses, normal rate, regular rhythm, no gallop/murmur, no JVD Respiratory/Chest: chest wall non-tender, lungs clear, normal breath sounds, no respiratory distress, no accessory muscle use Abdomen: normal bowel sounds, non tender, soft, no organomegaly, no mass Extremities: normal range of motion, non-tender Neurologic: tour escort II-XII grossly normal, no motor/sensory deficits Skin: normal pigmentation, warm/dry Laboratory Tests Test 09/01/17 14:10 Urine Color Pale yellow Urine Appearance Clear Urine pH 6 (4.5-8.0) Urine Specific [place] 1.020 (1.005-1.035) Urine Protein Negative (NEGATIVE) Urine Glucose (UA) Negative (NEGATIVE) Urine Ketones Negative (NEGATIVE) Urine Occult Blood Negative (NEGATIVE) Urine Nitrite Negative (NEGATIVE) Urine Bilirubin Negative (NEGATIVE) Urine Urobilinogen Normal MG/DL (0.0-1.0) Urine Leukocyte Esterase Negative (NEGATIVE) Urine RBC 0-2 /HPF (0 - 2) Urine WBC 0-2 /HPF (0 - 2) Urine Squamous Epithelial Cells Occasional /LPF Urine Bacteria Occasional /HPF (NONE) Current Medications Medications (Trade) Dose Ordered Sig/Nimesh Route PRN Reason Start Time Stop Time Status Last Admin Dose Admin Acetaminophen (Tylenol) 650 mg Q4H PRN ORAL fever 08/30/17 17:30 09/28/17 21:29 Albuterol/ Ipratropium (Albuterol/ Ipratropium) 3 ml EVERY 4 HOURS PRN HHN Shortness of Breath 08/30/17 17:00 09/03/17 21:29 Cefepime HCl 2 gm/ Dextrose 110 ml @ 220 mls/hr Q24H IV 08/31/17 09:00 09/06/17 08:59 09/02/17 08:44 Duloxetine HCl (Cymbalta) 60 mg DAILY ORAL 08/31/17 09:00 09/29/17 08:59 09/02/17 08:44 Gabapentin (Neurontin) 300 mg TWICE A DAY ORAL 08/31/17 11:15 09/30/17 11:14 09/02/17 08:44 Heparin Sodium (Porcine) (Heparin 5000 units/ml) 5,000 units EVERY 12 HOURS SUBQ 08/30/17 21:00 09/29/17 08:59 09/02/17 08:45 Metoprolol Tartrate (Lopressor) 25 mg DAILY ORAL 08/31/17 09:00 09/29/17 08:59 09/02/17 08:44 Morphine Sulfate (Morphine Sulfate) 2 mg EVERY 4 HOURS PRN IVP Moderate Pain (Pain Scale 4-6) 08/30/17 17:00 09/05/17 21:29 09/02/17 04:37 Ondansetron HCl (Zofran) 4 mg Q6H PRN IVP Nausea & Vomiting 08/30/17 15:30 09/28/17 21:29 Phenazopyridine HCl (Pyridium) 100 mg DAILY PRN ORAL dysuria 08/31/17 09:00 09/28/17 21:29 Polyethylene Glycol (Miralax) 17 gm DAILYPRN PRN ORAL Constipation 08/30/17 21:30 09/28/17 21:29 Quetiapine Fumarate (SEROquel) 50 mg BEDTIME ORAL 08/31/17 21:00 09/29/17 08:59 09/01/17 20:50 Temazepam (Restoril) 15 mg HSPRN PRN ORAL Insomnia 08/30/17 21:30 09/05/17 21:29 Ursula Pak M.D. Sep 02, 2017 12:47
--- NOTE | 2017-09-02 15:42 | Physician Query ---
--------- THIS DOCUMENT IS A PERMANENT PART OF THE MEDICAL RECORD --------- PLEASE COMPLETE DOCUMENT BEFORE SIGNING Dear DAMARIS Vega Date: 09/02/17 [employer]st [employer]/CD[employer] Name: Des Hernández Analyst Sales / [employer] Phone #[phone] Exercise your independent professional judgment when responding to query. Question asked do not imply a particular answer is desired/expected. Clinical Documentation States: "Altered Mental Status / Confusion / ALOC" documented in: H & P: (08/31/17) " Altered mental status. This may be secondary to urinary tract infection." Please indicate the nature and chronicity of the condition below: [] Metabolic Encephalopathy [] Toxic Encephalopathy [] Toxic - Metabolic Encephalopathy [] Progressive Encephalopathy [] Encephalopathy, Other [] Other: [] Not Applicable Severity [] Acute [] Chronic [] Acute on Chronic [] Unable to determine Condition Present on Admission: [] Yes [] No []Clinically Undeterminable Please also document in your Progress Notes and/or Discharge Summary and indicate if the condition was present on admission. Dr. DAMARIS REINA Date/Time [facility]
[2017-09-02 16:00] VITALS: BP 132/71
--- NOTE | 2017-09-02 18:58 | Internal Med Progress Note ---
Subjective Date of Service: Sep 02, 2017 Physician Name InesDamaris Attending Physician Sabas Molina MD Current Medications Medications (Trade) Dose Ordered Sig/Nimesh Route PRN Reason Start Time Stop Time Status Last Admin Dose Admin Acetaminophen (Tylenol) 650 mg Q4H PRN ORAL fever 08/30/17 17:30 09/28/17 21:29 Albuterol/ Ipratropium (Albuterol/ Ipratropium) 3 ml EVERY 4 HOURS PRN HHN Shortness of Breath 08/30/17 17:00 09/03/17 21:29 Duloxetine HCl (Cymbalta) 60 mg DAILY ORAL 08/31/17 09:00 09/29/17 08:59 09/02/17 08:44 Gabapentin (Neurontin) 300 mg TWICE A DAY ORAL 08/31/17 11:15 09/30/17 11:14 09/02/17 17:56 Heparin Sodium (Porcine) (Heparin 5000 units/ml) 5,000 units EVERY 12 HOURS SUBQ 08/30/17 21:00 09/29/17 08:59 09/02/17 08:45 Metoprolol Tartrate (Lopressor) 25 mg DAILY ORAL 08/31/17 09:00 09/29/17 08:59 09/02/17 08:44 Morphine Sulfate (Morphine Sulfate) 2 mg EVERY 4 HOURS PRN IVP Moderate Pain (Pain Scale 4-6) 08/30/17 17:00 09/05/17 21:29 09/02/17 04:37 Ondansetron HCl (Zofran) 4 mg Q6H PRN IVP Nausea & Vomiting 08/30/17 15:30 09/28/17 21:29 Phenazopyridine HCl (Pyridium) 100 mg DAILY PRN ORAL dysuria 08/31/17 09:00 09/28/17 21:29 Polyethylene Glycol (Miralax) 17 gm DAILYPRN PRN ORAL Constipation 08/30/17 21:30 09/28/17 21:29 Quetiapine Fumarate (SEROquel) 50 mg BEDTIME ORAL 08/31/17 21:00 09/29/17 08:59 09/01/17 20:50 Temazepam (Restoril) 15 mg HSPRN PRN ORAL Insomnia 08/30/17 21:30 09/05/17 21:29 Allergies: Coded Allergies: No Known Allergies (Unverified , 08/29/17) ROS Limited/Unobtainable: Yes Subjective 81 YO F admitted with altered mental status. Now UTI. Cover for Int Med Dr Molina. Objective Last Vital Signs Date Time Temp Pulse Resp B/P (MAP) Pulse Ox O2 Delivery O2 Flow Rate FiO2 09/02/17 16:00 98.1 86 18 132/71 97 Room Air 98.1 09/02/17 06:40 21 08/30/17 20:00 Intake and Output 09/01/17 09/02/17 19:00 07:00 Intake Total 110 ml 240 ml Balance 110 ml 240 ml Intake Oral 240 ml IV Total 110 ml # Voids 2 2 Objective General Appearance: mild distress, thin EENT: PERRL/EOMI, normal ENT inspection Neck: non-tender, normal alignment, supple Cardiovascular: normal peripheral pulses, normal rate, regular rhythm, no gallop/murmur, no JVD Respiratory/Chest: chest wall non-tender, lungs clear, normal breath sounds, no respiratory distress, no accessory muscle use Abdomen: normal bowel sounds, non tender, soft, no organomegaly, no mass Extremities: normal range of motion, non-tender Neurologic: chief psychology II-XII grossly normal, no motor/sensory deficits Skin: normal pigmentation, warm/dry Assessment/Plan Problem List: (1) Depression Assessment & Plan: See psych note. (2) HTN (hypertension) Assessment & Plan: Contunue lopressor (3) Alzheimer's dementia (4) UTI (urinary tract infection) Assessment & Plan: Continue cefepime per ID (5) Altered mental status Status: not improved DAMARIS REINA Sep 02, 2017 18:58
[2017-09-02 20:00] VITALS: BP 139/79
--- NOTE | 2017-09-02 22:39 | Consultation ---
Consultation HPI 09/01/17 the pt is confused ar rimes waxing and waning of consciousness Allergies: Coded Allergies: No Known Allergies (Unverified , 08/29/17) General Appearance: Fairly Groomed Consciousness: Somnolent Orientation: Place, Person Attention Span Description: Distractible Mood/Memory: Depressed Assessment/Plan Patient America Haro is a 81 year old female who was admitted on Aug 29, 2017 at 19 :28 with Problems: Assessment/Plan Assessment/Plan dementia with behavioral dist encephalopathy seroashleyl Liat Rincon M.D. Sep 02, 2017 22:39
--- NOTE | 2017-09-02 22:40 | General Progress Note ---
Assessment/Plan Status: stable Assessment/Plan Assessment/Plan dementia with behavioral dist encephalopathy seroquel Subjective Date patient seen: Sep 02, 2017 Neurologic/Psychiatric: Reports: anxiety, depressed Allergies: Coded Allergies: No Known Allergies (Unverified , 08/29/17) Subjective the pt knew her name confused Objective Last 24 Hour Vital Signs Date Time Temp Pulse Resp B/P (MAP) Pulse Ox O2 Delivery O2 Flow Rate FiO2 09/02/17 20:00 97.0 96 18 139/79 94 Room Air 97.0 09/02/17 19:15 84 18 Room Air 21 09/02/17 16:00 98.1 86 18 132/71 97 Room Air 98.1 09/02/17 11:51 97.2 78 18 129/73 97 Room Air 97.2 09/02/17 08:44 89 144/89 09/02/17 08:00 97.6 89 18 144/89 97 Room Air 97.6 09/02/17 06:40 76 16 Room Air 21 09/02/17 04:00 97.7 87 18 134/75 97 Room Air 97.7 09/01/17 23:53 97.0 93 18 126/80 98 Room Air 97.0 Intake and Output 09/01/17 09/02/17 19:00 07:00 Intake Total 110 ml 240 ml Balance 110 ml 240 ml Intake Oral 240 ml IV Total 110 ml # Voids 2 2 Height (Feet): 5 Height (Inches): 4.00 Weight (Pounds): 130 General Appearance: no apparent distress, alert, confused, agitated Liat Dan M.D. Sep 02, 2017 22:40
[2017-09-03 04:00] VITALS: BP 142/86
[2017-09-03 06:00] VITALS: BP 152/93
[2017-09-03 06:44] LABS: BASOPHILS % (AUTO) 1.1 % (0.0-2.0); EOSINOPHILS % (AUTO) 1.2 % (0.0-3.0); HEMATOCRIT 42.2 % (37.0-47.0); HEMOGLOBIN 14.4 G/DL (12.0-16.0); LYMPHOCYTES % (AUTO) 24.1 % (20.0-45.0); MEAN CORPUSCULAR VOLUME 93 FL (80-99); MONOCYTES % (AUTO) 7.8 % (1.0-10.0); NEUTROPHILS % (AUTO) 65.8 % (45.0-75.0); PLATELET COUNT 287 K/UL (150-450); RED BLOOD COUNT 4.55 M/UL (4.20-5.40); RED CELL DISTRIBUTION WIDTH 12.7 % (11.6-14.8); WHITE BLOOD COUNT 7.8 K/UL (4.8-10.8)
[2017-09-03 06:56] LABS: ANION GAP 9 mmol/L (5-15); BLOOD UREA NITROGEN 24 mg/dL (7-18); CALCIUM 9.8 MG/DL (8.5-10.1); CARBON DIOXIDE 28 MMOL/L (21-32); CHLORIDE 102 MMOL/L (98-107); CREATININE 1.2 MG/DL (0.55-1.30); SODIUM 139 MMOL/L (136-145)
[2017-09-03 08:00] VITALS: BP 142/84
[2017-09-03] MEDS: Metoprolol 25mg tab ORAL SCH (08:23)
[2017-09-03] MEDS: Heparin 5000 units/ml inj SUBQ SCH (08:27)
[2017-09-03] MEDS ORDERED: DULoxetine 30mg cap ORAL SCH (09:00)
[2017-09-03 12:00] VITALS: BP 127/74
--- NOTE | 2017-09-03 13:09 | Pulmonology Progress Note ---
Assessment/Plan Problems: (1) Altered mental status (2) UTI (urinary tract infection) (3) UCHE (acute kidney injury) (4) Psychiatric diagnosis Assessment/Plan improved psych notes reviewed dc home to assisted living. Subjective Interval Events: awake, comfortable Allergies: Coded Allergies: No Known Allergies (Unverified , 08/29/17) Objective Last 24 Hour Vital Signs Date Time Temp Pulse Resp B/P (MAP) Pulse Ox O2 Delivery O2 Flow Rate FiO2 09/03/17 12:00 97.8 73 18 127/74 98 97.8 09/03/17 08:23 112 142/84 09/03/17 08:00 97.6 112 18 142/84 96 97.6 09/03/17 07:40 115 20 Room Air 21 09/03/17 06:00 97.1 102 18 152/93 98 Room Air 97.1 09/03/17 04:00 97.2 98 17 142/86 98 97.2 09/02/17 20:00 97.0 96 18 139/79 94 Room Air 97.0 09/02/17 19:15 84 18 Room Air 21 09/02/17 16:00 98.1 86 18 132/71 97 Room Air 98.1 Intake and Output 09/02/17 09/03/17 19:00 07:00 Intake Total 550 ml 150 ml Balance 550 ml 150 ml Intake Oral 550 ml 150 ml # Voids 3 3 # Bowel Movements 1 General Appearance: WD/WN HEENT: normocephalic, atraumatic Respiratory/Chest: chest wall non-tender, lungs clear Breasts: no masses Cardiovascular: normal peripheral pulses Abdomen: normal bowel sounds, soft, non tender Genitourinary: normal external genitalia Skin: no rash Neurologic/Psychiatric: tricot knitter II-XII grossly normal Lymphatic: no neck adenopathy Laboratory Tests 09/03/17 06:35: White Blood Count 7.8, Red Blood Count 4.55, Hemoglobin 14.4, Hematocrit 42.2, Mean Corpuscular Volume 93, Mean Corpuscular Hemoglobin 31.6H, Mean Corpuscular Hemoglobin Concent 34.1, Red Cell Distribution Width 12.7, Platelet Count 287, Mean Platelet Volume 6.1L, Neutrophils (%) (Auto) 65.8, Lymphocytes (%) (Auto) 24.1, Monocytes (%) (Auto) 7.8, Eosinophils (%) (Auto) 1.2, Basophils (%) (Auto ) 1.1, Sodium Level 139, Potassium Level 4.0, Chloride Level 102, Carbon Dioxide Level 28, Anion Gap 9, Blood Urea Nitrogen 24H, Creatinine 1.2, Estimat Glomerular Filtration Rate , Glucose Level 127H, Calcium Level 9.8 Current Medications Medications (Trade) Dose Ordered Sig/Nimesh Route PRN Reason Start Time Stop Time Status Last Admin Dose Admin Acetaminophen (Tylenol) 650 mg Q4H PRN ORAL fever 08/30/17 17:30 09/28/17 21:29 Albuterol/ Ipratropium (Albuterol/ Ipratropium) 3 ml EVERY 4 HOURS PRN HHN Shortness of Breath 08/30/17 17:00 09/03/17 21:29 Duloxetine HCl (Cymbalta) 30 mg DAILY ORAL 09/03/17 09:00 10/03/17 08:59 09/03/17 08:22 Gabapentin (Neurontin) 300 mg TWICE A DAY ORAL 08/31/17 11:15 09/30/17 11:14 09/03/17 08:22 Heparin Sodium (Porcine) (Heparin 5000 units/ml) 5,000 units EVERY 12 HOURS SUBQ 08/30/17 21:00 09/29/17 08:59 09/03/17 08:27 Metoprolol Tartrate (Lopressor) 25 mg DAILY ORAL 08/31/17 09:00 09/29/17 08:59 09/03/17 08:23 Morphine Sulfate (Morphine Sulfate) 2 mg EVERY 4 HOURS PRN IVP Moderate Pain (Pain Scale 4-6) 08/30/17 17:00 09/05/17 21:29 09/02/17 04:37 Ondansetron HCl (Zofran) 4 mg Q6H PRN IVP Nausea & Vomiting 08/30/17 15:30 09/28/17 21:29 Phenazopyridine HCl (Pyridium) 100 mg DAILY PRN ORAL dysuria 08/31/17 09:00 09/28/17 21:29 Polyethylene Glycol (Miralax) 17 gm DAILYPRN PRN ORAL Constipation 08/30/17 21:30 09/28/17 21:29 Quetiapine Fumarate (SEROquel) 12.5 mg Q12HR PRN ORAL Agitation 09/02/17 22:45 10/02/17 22:44 Quetiapine Fumarate (SEROquel) 50 mg BEDTIME ORAL 08/31/17 21:00 09/29/17 08:59 09/02/17 21:26 Temazepam (Restoril) 15 mg HSPRN PRN ORAL Insomnia 08/30/17 21:30 09/05/17 21:29 Pratik Barkley MD Sep 03, 2017 13:09
[2017-09-03] MEDS ORDERED: Tubing IV Secondary IV ONE (13:51)
[2017-09-03] MEDS ORDERED: NS 275ml ONE (13:51)
[2017-09-03] MEDS ORDERED: D5W 275ml ONE (13:51)
--- NOTE | 2017-09-04 22:55 | General Progress Note ---
Assessment/Plan Assessment/Plan Assessment/Plan dementia with behavioral dist encephalopathy seroquel Subjective Date patient seen: Sep 03, 2017 Allergies: Coded Allergies: No Known Allergies (Unverified , 08/29/17) Subjective the pt knew her name confused Objective Intake and Output 09/03/17 09/04/17 19:00 07:00 Intake Total 640 ml Balance 640 ml Intake Oral 640 ml # Voids 2 Height (Feet): 5 Height (Inches): 4.00 Weight (Pounds): 130 Liat Dan M.D. Sep 04, 2017 22:55
--- NOTE | 2017-09-05 14:10 | Discharge Summary ---
Discharge Summary Hospital Course Date of Admission Aug 29, 2017 at 19:28 Date of Discharge Sep 03, 2017 at 13:52 Admitting Diagnosis AMS/dyspnea HPI America Haro is a 81 year old female who was admitted on Aug 29, 2017 at 19 :28 for Altered Mental Status/Dyspnea Hospital Course [id number] Discharge Discharge Disposition Patient was discharged to [facility] (01) Discharge Diagnoses: Anh Kaba NP Sep 05, 2017 14:10
--- NOTE | 2017-09-06 04:00 | Discharge Summary 2 SIG ---
DATE OF ADMISSION: 08/29/2017 DATE OF DISCHARGE: 09/03/2017 ATTENDING PHYSICIAN: Sabas Molina M.D. CONSULTANTS: 1. Pratik Barkley M.D. 2. Liat Dan M.D. 3. Ursula Pak M.D. BRIEF HOSPITAL COURSE: The patient is a 81-year-old female, who presented with chief complaint of altered mental status. The patient is a resident of [facility] and unable to contribute much of the history. Per nursing staff at [facility], the patient had altered mental status. She was transported to ED and on evaluation, was found to have leukocytosis, WBC was 11.2. Urine WBC 5 to 10 with 1+ leukocyte esterase. She had a chest x-ray done that showed equivocal small bilateral pleural effusion, otherwise no acute process. She was admitted for altered mental status, which may be secondary to urine infection. She was started empirically on vancomycin. She was continued on her Aricept and Namenda. She was given metoprolol for blood pressure control and was continued on Cymbalta and trazodone for depression. She was followed by Infectious Disease specialist. Vancomycin was placed on hold. Antibiotic was switched to IV cefepime. She underwent psychiatric evaluation. The patient had waxing and waning of consciousness and has memory impairment and appeared not to be engaged. She was diagnosed with encephalopathy with dementia and behavioral disturbance. Donepezil was discontinued and was changed to Seroquel nightly. Blood culture did not isolate any growth. Mild leukocytosis resolved. There was no obvious infectious process at present. She was taken off antibiotic treatment. She underwent speech therapy evaluation showed oropharyngeal dysphagia and recommended diet, soft easy chewed nectar thick liquids. She was eventually discharged back to [facility]. FINAL DIAGNOSES: 1. Altered mental status/toxic encephalopathy, possibly secondary to urinary tract infection. 2. Acute kidney injury. 3. Dementia with behavioral disturbance. 4. Hypertension. 5. Alzheimer's dementia. 6. Depression. DISPOSITION: The patient was discharged to [facility]. DISCHARGE MEDICATIONS: Refer to medication list. DISCHARGE INSTRUCTIONS: Follow up with Dr. Molina as an outpatient in a week. Pratik Barkley M.D. I have been assigned to dictate discharge summary on this account and I was not involved in the patient's management. Anh Kaba N.P. DR: ADA JOB#: [id number] CC: MARC
== END 2017-09-03 13:52 | disposition home or self-care (01) | DRG 689 ==
LOC: EDBD 17:15 → EMR 19:25 → 2E 19:28 → EDBEDREQ 19:38 → 3E 08-30 15:20
DX: N39.0 Urinary tract infection, site not specified (principal); G92 Toxic encephalopathy; N17.9 Acute kidney failure, unspecified; F02.81 Dementia in other diseases classified elsewhere, unspecified severity, with behavioral disturbance; I10 Essential (primary) hypertension; G30.9 Alzheimer's disease, unspecified; F32.9 Major depressive disorder, single episode, unspecified; M81.0 Age-related osteoporosis without current pathological fracture
CPT/HCPCS: 36415; 71045; 80048; 80053; 80202; 81001; 81003; 82550; 82553; 83605; 84484; 85025; 87040; 87081; 93005; 94664; 99285